=== PATIENT | female | born 1985 | race Caucasian/White ===

== ENCOUNTER 2019-03-31 13:21 | Emergency (ER) | payer MEDICAID, SELFPAY | END 2019-03-31 13:42 | disposition home or self-care (01) | LOC: BURERS 13:21 | DX: M54.5 Low back pain (principal) | CPT/HCPCS: 99283 ==

== ENCOUNTER 2020-02-13 07:27 | Emergency (ER) | payer SELFPAY | END 2020-02-13 08:10 | disposition home or self-care (01) | LOC: BURERS 07:27 | DX: K02.9 Dental caries, unspecified (principal) | CPT/HCPCS: 99281 ==